=== PATIENT | female | born 1965 | race Caucasian/White ===

== ENCOUNTER 2025-05-11 12:28 | Outpatient (AMB) | payer OTHER, SELFPAY ==
--- OUTSIDE RECORDS SUMMARY | 2025-05-04 15:12 | XMS_ITS | Continuity of Care Document ---
Author Organization [facility] Address [address] [place] [address] [address] [place] [address] Phone Care Team Providers Care Welcome Desk Agent Name Role Phone Carlos ALCARAZ, EDWAR, David VAZQUEZ Unavailable U navailable Procedures Procedure Date 18-30 mmHg Thigh length gradient koby alexis stocking Advance Directives Directive Yes / No Effective Date File Name No Information Encounters Encounter Description Practice Location Reason(s) For Visit Diagnoses Date Provider Encounter Disposition [facility], [address] [place] [address] Dr [address]st [address], [id number], [place] tel:[phone] CVR - [facility] Chronic venous hypertension (idiopathic) with other complications of bilateral lower extremity Apr- 5 Carlos ALCARAZ RVT, RPVI Robert. [address] [place] [address], [id number] , [place]. tel:[phone] [place] [facility], [address] [place] [address] Dr [address], [id number], [place] tel:[phone] CVR - [facility] Chronic venous hypertension (idiopathic) with other complications of bilateral lower extremity Apr- 5 Carlos ALCARAZ RVT, RPVI Robert. [address] [place] [address], [id number] , [place]. tel:[phone] [place] [facility], [address] [place] [address] Dr [address], [id number], [place] tel:[phone] CVR - [facility] Chronic venous hypertension (idiopathic) with other complications of bilateral lower extremity Sep-1 5 Carlos ALCARAZ RVT, GEORGE Hernandez. [address] [place] [address], [facility] [place] [id number] , [place]. [phone] [facility], [address] [place] [address] Dr [address] [facility] [address], [id number], tel:[phone] CVR - [facility] Chronic venous hypertension (idiopathic) with other complications of bilateral lower extremityCram p and spasm Sep-1 5 Carlos ALCARAZ RVT, GEORGE Hernandez. [address] [place] [address], [place], [id number] , [place]. [phone] [facility], [address] [place] [address] Dr [address] [facility] [address], [id number], [place] tel:[phone] CVR - [facility] Chronic venous hypertension (idiopathic) with other complications of left lower extremity Sep-1 5 Carlos ALCARAZ RVT, GEORGE Hernandez. [address] [place] [address], [facility] [place], [id number] , [place]. [phone] Family History Family Member Type Diagnosis Age At Onset No Information Payers Payer name Insurance type Identifiers Authorization(s) Com [employer] Member ID: Name: Coverage Status Eligibility Check on: [id number] nship to Subscriber: spousePayer Address: [address] [address], [place], [address], [facility] Phone: [phone] Social History Type Description Quantity Date Captured Comments Sex Female Smoking Status No Information Current Gender Female (finding) Chief Complaint And Reason For Visit No Information Plan Of Treatment Date Type Action Status Goal Diet education completed Referral Ordered: Weight management: Referral to physician timeframe: 3 Months (related to Body mass index (BMI) 27.0-27.9, adult) ordered Appointment Luciana Soto BOOKED Appointment Luciana Soto BOOKED History Of Present Illness Encounter Date Complaint History Of Prese nt Illness No Information Functional Status Date Description Comments No Information Instructions Date Instruction Additional Infor benny Patient education booklet given Related to Chronic venous hypertension (idiopathic) with other complications of bilateral lower extremity Pre and post instruc tions reviewed and provided Related to Chronic venous hypertension (idiopathic) with other complications of bilateral lower extremity Diet education Related to Body mass index (BMI) 27.0-27.9, adult Giving Encouragement to exercise Related to Body mass index (BMI) 27.0-27.9, adult Lifestyle education Related to B sisi mass index (BMI) 27.0-27.9, adult Assessments Type Assessment Date No Information
--- OUTSIDE RECORDS SUMMARY | 2025-05-09 13:34 | XMS_ITS | Encounter Summary ---
Author Organization [facility] Address [address] [place] [address] Care Team Providers Care Concrete Pointer Name Role Phone Alejandro Townsend Primary Care Provider [phone] Reason for Referral * Imaging (Emergency) - Authorized Specialty Diagnoses / Procedures Referred By Yaz christianson Referred To Contact Radiology Diagnoses Thyroid nodule Procedures US Head Neck Soft Tissue Tejal Snider PA [address] [place] [address] Phone: tel: fax: [facility] Referral ID Status Reason Start Date Expiration Date V isits Requested Visits Authorized [id number] Authorized 05/08/2025 05/08/2026 1 1 Reason for Visit * Imaging (Emergency) - Authorized Specialty Diagnoses / Procedures Referred By Yaz christianson Referred To Contact Radiology Diagnoses Thyroid nodule Procedures US Head Neck Soft Tissue Tejal Snider PA [address] [place] [address] Phone: tel: fax: [facility] Referral ID Status Reason Start Date Expiration Date V isits Requested Visits Authorized [id number] Authorized 05/08/2025 05/08/2026 1 1 Encounter Details Date Type Department Care Team (Latest Contact Info) Description 05/09/2025 1:34 PM EST - 05/09/2025 11:59 PM EST Hospital Encounter [facility] Ultrasound [address] [place] [address] Thyroid nodule Discharge Disposition: Home or Self Care Social History Tobacco Use Types Packs/Day Years Used Date Smoking Tobacco: Former Cigarettes 0.3 Q uit: 02/19/2018 Smokeless Tobacco: Never Alcohol Use Standard Drinks/Week Comments No 0 (1 standard drink = 0.6 oz pur e alcohol) Interpersonal Safety Answer Date Record ed Physical Abuse Unrecognized value 01/09/2025 Verbal Abuse Unrecognized value 01/09/2025 Comments No Sex and Gender Information Value Date Recorded Sex Assigned at Female 12/30/2024 1:26 PM EDT Legal Sex Female 1:33 AM EST Gender Identity Female 12/30/2024 1:26 PM EDT Sexual Orientation Straight 12/30/2024 1: 26 PM EDT documented as of this encounter Medications at Time of Discharge acetaminophen (TYLENOL) 500 mg tablet Take 2 tablets (1,000 mg total) by mouth. 05/04/2022 acetaminophen (TYLENOL) 500 mg tablet Take 2 tablets (1,000 mg total) by mouth every 8 (eight) hours. 42 tablet 01/10/2025 b complex vitamins capsule Take 1 capsule by mouth 1 (one) time each day. 07/11/2023 docusate sodium (COLACE) 100 mg capsule Take 1 capsule (100 mg total) by mouth 2 (two) times a day if needed for constipation. Stop if having diarrhea 30 capsule 01/10/2025 gabapentin (NEURONTIN) 100 mg capsuleIndicatio ns:History of DVT (deep vein thrombosis) 02/20/2025 tirzepatide (Mounjaro) 12.5 mg/0.5 mL injection Inject 0.5 mL (12.5 mg total) under the skin every 7 (seven) days. 2 mL 04/13/2025 05/13/2025 traMADoL (ULTRAM) 50 mg tabletIndication s:History of DVT (deep vein thrombosis) 03/09/2025 documented as of this encounter Discharge Disposition Disposition Code Departure Means Destination Home or Self Care documented in this encounter Plan of Treatment Upcoming Encounters Date Type Department Care Team (Late st Contact Info) Description 06/11/2025 8:00 AM EST Appointment [facility] CT Scan [address] [place] [phone] 06/22/2025 8:00 AM EST Office Visit Bariatric Surgery [facility] [address] [address] Tejal Snider PA [address] [place] [address] 09/10/2025 11:30 AM EDT Office Visit Bariatric Surgery [address] [address] Ezekiel Devries MD [address] [place] [address] Pending Results Name Type Priority Associated Diagnoses Date /Time US Head Neck Soft Tissue Imaging STAT Thyroid nodule 05/09/2025 1:55 PM EST Scheduled Orders Name Type Priority Associated Diagnoses Orde r Schedule US Head Neck Soft Tissue Imaging STAT Thyroid nodule Once for 1 Occurrences starting 05/09/2025 until 05/09/2025 documented as of this encounter Visit Diagnoses Diagnosis Thyroid nodule Nontoxic uninodular goiter documented in this encounter Care Teams Concrete Pointer Relationship Specialty Start Date End Date Alejandro Townsend PA [address] [place] [address] PCP - General Primary Care 12/30/24 documented as of this encounter
--- NOTE | 2025-05-11 12:30 | A.OFFVIS_ITS ---
Vital Signs 05/11/25 12:32 Height 5 ft 2 in Weight 150 lb BMI 27.4 BP 118/64 Blood Pressure Location Lt brachial Position Sitting Respiration 16 Pulse 74 Pulse Source Pulse Oximeter Pulse Oximetry (%) 99 Oxygen Delivery Method Room Air Intake Visit Reasons: leg pain [place] [employer] Required: No Allergies No Known Allergies Allergy (Verified 05/11/25 12:34) Medication List - Last Reconciled 05/11/25 by Caitlin Disla LPN cholecalciferol (vitamin D3) 50 mcg PO DAILY gabapentin 100 mg PO TID oxycodone 5 mg PO BID PRN tirzepatide (Mounjaro) 12.5 mg subcut QWEEK tramadol 50 mg PO TID PRN HPI HPI leg pain: Details: History of Present Illness The patient is a 60 year old female presenting with persistent left-sided thigh pain. The pain is located in her left thigh and started suddenly. She reports the pain is constant and describes it as stabbing in nature. Past medical history is notable for diabetes. She takes fluoxetine. She has had a prior MRI of the left thigh. Pain Description - Location: The pain is in the left thigh. - Quality: The pain is described as stabbing. - Onset: The pain started suddenly. - Timing: The pain is present all the time. - Exacerbating Factors: The pain worsens with palpation. Physical Exam - General: The patient was examined in the prone position. - Musculoskeletal: Palpation of the left thigh reveals a focal area of tenderness that reproduces her pain. Pain Management: - Analgesia: The patient is taking fluoxetine. - Immediate-post procedure, the patient reported she was not in pain. Procedure: Posterior femoral cutaneous nerve block, US guided - A diagnostic injection was performed on the left thigh. - The risks and benefits were discussed, including that the procedure would be quick but may cause some pain, and potential for numbness in the left foot afterward. - The patient was placed in the prone position. - The injection was administered to the PFCN with ropivacaine 0.25% 8 mL. - The patient tolerated the procedure well. Image saved. [facility] Medical History (Updated 05/12/25 @ 14:22 by Jose Luis Arnold MD) Chronic pain of left lower extremity Vitamin D deficiency Obesity Insomnia GERD (gastroesophageal reflux disease) Physical Exam Vital Signs: Last Vital Signs Pulse 74 05/11/25 12:32 Resp 16 05/11/25 12:32 BP 118/64 05/11/25 12:32 Pulse Ox 99 05/11/25 12:32 Oxygen Delivery Method Room Air 05/11/25 12:32 BMI result Body Mass Index 27.4 Assessment & Plan Assessment & Plan (1) Left thigh pain: Code(s): M79.652 - Pain in left thigh Category: Medical Plan Plan Patient was informed and verbally consented to the use of an ambient scribe for clinic note documentation during this visit. 1. Left Thigh Pain - The patient's pain is localized to the left thigh and is chronic and stabbing in nature. - A diagnostic and therapeutic injection was performed today in the area of maximal tenderness. - She was advised that she might experience some numbness in her left foot post- procedure. - The patient was instructed to call the office tomorrow to report on her symptoms. - If the injection does not provide relief, another injection or further testing may be considered. Discussion Notes I discussed the plan to proceed with a therapeutic injection into her left thigh for her chronic pain. I explained that the procedure would be quick but could cause some mild, brief pain. I also advised her of the possibility of some numbness in her left foot afterward and to take care when walking. She tolerated the procedure well. I instructed her to wait 10-20 minutes to assess for any immediate change in her usual pain and to call our office tomorrow to provide an update on how she is feeling. We discussed that if this intervention is not effective, we may need to consider another injection or further diagnostic testing. Patient Instructions - After the procedure, your left foot may feel a little numb. - Please be careful when you start walking. - Please call our office tomorrow to let us know how your pain is. - If this injection does not help your pain, we may need to do another test or procedure. Coding Level of Care Code New Pt Level 4 (83810) Diagnoses Left thigh pain M79.652
[2025-05-11 12:32] VITALS: BP 118/64; PULSE 74; RESP 16; O2SAT 99; BMI 27.4
--- OUTSIDE RECORDS SUMMARY | 2025-05-11 15:39 | XMS_ITS | Encounter Summary ---
Author Organization [facility] Address [address] [place] [address] Care Team Providers Care Service Station Helper Name Role Phone Alejandro Townsend Primary Care Provider [phone] Reason for Referral * Imaging (Routine) - Pending Review Specialty Diagnoses / Procedures Referred By Contac t Referred To Contact Radiology Diagnoses Adrenal nodule (CMS/HCC V24) Procedures CT Abdomen Pelvis wo and w Contrast Tejal Snider PA [address] [place] [address] Phone: tel: fax: [address] [address] Phone: tel: Referral ID Status Reason Start Date Expiration Date V isits Requested Visits Authorized [id number] Pending Review 05/08/2025 05/08/2026 1 1 * Imaging (Emergency) - Authorized Specialty Diagnoses / Procedures Referred By Contac t Referred To Contact Radiology Diagnoses Thyroid nodule Procedures US Head Neck Soft Tissue Tejal Snider PA [address] [place] [address] Phone: tel: fax: [facility] Referral ID Status Reason Start Date Expiration Date V isits Requested Visits Authorized [id number] Authorized 05/08/2025 05/08/2026 1 1 Encounter Details Date Type Department Care Team (Late st Contact Info) Description 05/08/2025 Telephone Bariatric Surgery - [address] [place] [address] Tejal Snider PA [address] [place] [address] Social History Tobacco Use Types Packs/Day Years [...] PM EDT documented as of this encounter Progress Notes * ANA LUISA Simpson - 05/08/2025 11:19 AM EST Patient sent a message to the office earlier in the week in regards to a letter that she received from [employer] [facility] stating that there was incidental findings on the CT scan that she had in December 2024 A scan results below At the time of the CT scan was performed she is being worked up for bariatric complication Incidental findings were discussed with the patient at the time results came back Images were also sent to her primary care for further workup regarding thyroid nodule and adrenal nodules Patient states that she has followed up with her primary care since that time and this has not beendiscussed She mentions that she vaguely remembers the conversation regarding these incidental findings however has been more concerned with leg pain and her workup for the source of this discomfort Reached out to radiology who recommend that she call our office to schedule further workup per the [employer] program suggestion Will order thyroid ultrasound and CT with adrenal protocol Called radiology to verify correct orders Patient also asked to follow up with PCP Narrative & Impression PROCEDURE: CT of the chest, abdomen, and pelvis with intravenous contrast. HISTORY: complicated surgical hx, RYGB, marginal ulcer at GJ, new pleural effusion on pre op testing. r/o marginal ulcer perforation. COMPARISON: CT abdomen and pelvis 09/13/2023. CT abdomen and pelvis 06/10/2022. TECHNIQUE: Contrast-enhanced CT of the chest, abdomen, and pelvis with coronal and sagittal reformats. IV contrast dose: 90 mL [id number]. Dose length product: 1221 mGy-cm. FINDINGS: Lungs/pleura: Aspirated debris in the trachea. Normal caliber airways. Scattered very small (less than 2 mm) pulmonary nodules. Some are calcified. No suspicious pulmonary nodule or mass. No pleural effusion or pneumothorax. Mediastinum/bonnie: There is a low-attenuation nodule in the left thyroid lobe which could be better assessed with ultrasound. 7 mildly prominent left internal mammary lymph node (series 4, image 45) mild diffuse circumferential mural thickening of the esophagus which could be secondary to esophagitis. No mass or adenopathy. Thoracic vasculature: Mild atherosclerotic calcifications of the great vessels. Aberrant right subclavian artery. Normal caliber pulmonary arteries. No central pulmonary embolism. Cardiac: Mild coronary artery calcification. Normal heart size. Chest wall: No mass or adenopathy. Liver: There are scattered very small low-attenuation lesions which are unchanged and are probably cysts but too small for definitive characterization. Portal veins are patent. Biliary: Cholecystectomy. Mild prominence of the common duct, likely due to a reservoir effect. Pancreas: Normal. Spleen: Normal. Adrenal glands: 3 stable left adrenal nodules dating back to May 2022. The most superior measures 3.1 cm and is stable. This is fatty in attenuation consistent with a myolipoma. A 2.4 cm lesion arising slightly more inferiorly is also unchanged. This is low in attenuation but does not region ofinterest criteria for a fat-containing adenoma. The smallest and most inferiorly positioned nodule measures 1 cm and is of similar attenuation to the 2nd lesion. It is also unchanged. 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 Normal appearance of the ureters. Retroperitoneum: No mass or adenopathy. Abdominal vasculature: Normal. Bowel/mesentery: Postsurgical changes of a gastric bypass. No extraluminal gas collection. No obstruction or adenopathy. No mass or ascites. Abdominal wall: Normal. Pelvic nodes: No adenopathy. Pelvic organs: Normal. Bones: Degenerative changes of the spine. Mild degenerative changes of the hips. Degenerative changes of the sacroiliac joints with prominent reactive sclerosis. IMPRESSION: 1. Annika-en-Y gastric bypass. No evidence of a perforation. 2. Aspirated debris in the trachea. 3. 3 stable left adrenal nodules. 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 The 2 smaller nodulesare probably adenomas, but do not meet region of interest criteria on this (or previous) contrast-enhanced CT. They are stable dating back to May 2022. Definitive characterization of these nodules could be performed with adrenal protocol CT or MRI. 4. Mural thickening of the esophagus suggestive of esophagitis. 5. Nonspecific mildly enlarged left internal mammary lymph node. -------- FINAL REPORT -------- Dictated By: Eric Lees Dictated Date: 01/01/2025 09:23 ET Assigned Physician: Eric Lees Reviewed and Electronically Signed By: Eric Lees Signed Date: 01/01/2025 09:42 ET Workstation ID: [id number] Transcribed By: Self Edit Transcribed Date: 01/01/2025 09:23 ET documented in this encounter Plan of Treatment Upcoming Encounters Date Type Department Care Team (Late st Contact Info) Description 06/11/2025 8:00 AM EST Appointment [facility] CT Scan [address] [place] [phone] 06/22/2025 8:00 AM EST Office Visit Bariatric Surgery [facility] [address] [phone] Tejal Snider PA [address] [place] [phone] 09/10/2025 11:30 AM EDT Office Visit [address] [phone] Ezekiel Devries MD [address] [place] [address] Pending Results Name Type Priority Associated Diagnoses Date /Time US Head Neck Soft Tissue Imaging STAT Thyroid nodule 05/09/2025 1:55 PM EST Scheduled Orders Name Type Priority Associated Diagnoses Orde r Schedule US Head Neck Soft Tissue Imaging STAT Thyroid nodule Expected: 05/08/2025, Expires: 05/08/2026 CT Abdomen Pelvis wo and w Contrast Imaging Routine Adrenal nodule (CMS/HCC V24) Expected: 05/08/2025, Expires: 05/08/2026 documented as of this encounter Visit Diagnoses Diagnosis Thyroid nodule- Primary Nontoxic uninodular goiter Adrenal nodule (CMS/HCC V24) Benign neoplasm of adrenal gland documented in this encounter Care Teams Service Station Helper Relationship Specialty Start Date End Date Alejandro Townsend PA [address] [place] [address] PCP - General Primary Care 12/30/24 documented as of this encounter
--- OUTSIDE RECORDS SUMMARY | 2025-05-11 15:39 | XMS_ITS | Clinical Summary ---
Author Organization [facility] [address] [facility] Building Address [address] [place] [address] Phone Care Team Providers Care Blanching Machine Operator Name Role Phone Alejandro Townsend Primary Care Provider [phone] Allergies No known active allergies Medications b complex vitamins capsule Take 1 capsule by mouth 1 (one) time each day. 4 Active acetaminophen (TYLENOL) 500 mg tablet Take 2 tablets (1,000 mg total) by mouth. 2 Active acetaminophen (TYLENOL) 500 mg tablet Take 2 tablets (1,000 mg total) by mouth every 8 (eight) hours. 42 tablet 5 Active docusate sodium (COLACE) 100 mg capsule Take 1 capsule (100 mg total) by mouth 2 (two) times a day if needed for constipation. Stop if having diarrhea 30 capsule 5 Active apixaban (ELIQUIS) 5 mg tabletIndications :Blood clot associated with vein wall inflammation Take 2 tablets (10 mg total) by mouth 2 (two) times a day. Take 2 tablets by mouth twice daily for one week. Then take one tablet by mouth twice daily. 120 each 5 Active traMADoL (ULTRAM) 50 mg tabletIndications :History of DVT (deep vein thrombosis) 5 Active gabapentin (NEURONTIN) 100 mg capsuleIndication s:History of DVT (deep vein thrombosis) 5 Active tirzepatide (Mounjaro) 12.5 mg/0.5 mL injection Inject 0.5 mL (12.5 mg total) under the skin every 7 (seven) days. 2 mL 5 05/13/20 25 Active ergocalciferol (VITAMIN D-2) 1,250 mcg (50,000 unit) capsuleIndication s:Vitamin D deficiency Take 1 capsule (50,000 Units total) by mouth 1 (one) time per week for 12 doses. 12 each 5 05/07/20 25 tirzepatide (Mounjaro) 10 mg/0.5 mL injection Inject 0.5 mL (10 mg total) under the skin every 7 (seven) days. 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) 12/10/2024 01/10/2025 Encounters Date Type Department Care Team Description 05/09/2025 1:34 PM EST - 05/09/2025 11:59 PM EST Hospital Encounter [facility] Ultrasound [address] [place] [phone] Thyroid nodule Discharge Disposition: Home or Self Care 05/08/2025 Telephone Bariatric Surgery [facility] [address] [phone] Tejal Snider PA 04/08/2025 2:00 PM EST Office Visit Bariatric Surgery [facility] [address] [phone] Ezekiel Devries MD Intestinal malabsorption following gastrectomy (Primary Dx); Over weight 03/12/2025 8:30 AM EDT Office Visit [facility] Hematology Oncology [address] [place] [phone] Keenan Harris MD History of DVT (deep vein thrombosis) (Primary Dx) 02/18/2025 Results Follow-Up Bariatric Surgery [facility] 175 [facility] [address] [place] [address] Ezekiel Devries MD 02/17/2025 8:15 AM EDT Office Visit Bariatric Surgery - [place] 175 [facility] [address] [place] [address] Ezekiel Devries MD Blood clot associated with vein wall inflammation (Primary Dx); Postoperative intestinal malabsorption from Last 3 Months Surgical History Surgery Date Site/Laterality Comments OTHER SURGICAL HISTORY PROCEDURE: [place] LIG/TRNSXJ FLP TUBE ABDL/VAG APPR UNI/BI LAPAROSCOPIC GASTRIC BANDING 05/25 PROCEDURE: LAP ADJUSTABLE GASTRIC BAND; COMMENT: Dominic; APPENDECTOMY 04/29/08 PROCEDURE: HISTORICAL APPENDECTOMY OTHER SURGICAL HISTORY 05/06/2018 PROCEDURE: ---- OTHER ----; COMMENT: lap band removed CHOLECYSTECTOMY PROCEDURE: HISTORICAL CHOLECYSTECTOMY BARIATRIC SURGERY 12/06/2018 PROCEDURE: [place] LAPS GSTRC RSTRICTIV PX LONGITUDINAL GASTRECTOMY; COMMENT: lap sleeve gastrectomy Medical History Medical History Date Comments Unspecified constipation 09/21/2005 DX:Unsp ecified constipation Class 3 severe obesity due t o excess calories with body mass index (BMI) of 40.0 to 44.9 in adult ([facility] V24, [facility] V28) 11/19/2018 DX:Class 3 severe obesity du e to excess calories with body mass index (BMI) of 40.0 to 44.9 in adult ([facility]) GERD (gastroesophageal reflux disease) DVT of leg (deep venous thro mbosis) (CMS/HCC V24, CMS/[facility] V28) right GERD (gastroesophageal reflux disease) Insomnia Family History Medical History Relation Name Comments No Known Problems Daughter Heart attack Father Hypertension Father Other: bone cancer Maternal Grandmother d ied Thyroid disease Mother hyper-hypo Breast cancer Sister x2, in right b reast x1 and left breast x1 Other: refractory seizures Son Relation Name Status Comments Daughter Alive Father Alive Maternal Grandmother Mother Sister Alive Son Alive Social History Tobacco Use Types Packs/Day Years Used Date Smoking Tobacco: Former Cigarettes 0.3 Q uit: 02/19/2018 Smokeless Tobacco: Never Tobacco Cessation:Counseling Given: Not Answered Alcohol Use Standard Drinks/Week Comments No 0 [...] Orientation Straight 12/30/2024 1: 26 PM EDT Last Filed Vital Signs Vital Sign Reading Time Taken Comments Blood Pressure 113/73 04/08/2025 2:09 PM EST Pulse 71 04/08/2025 2:09 PM EST Temperature 36.6 C (97.8 F) 04/08/2025 2:09 PM EST Respiratory Rate 16 01/10/2025 7:54 AM EDT Oxygen Saturation 100% 03/12/2025 8:37 AM EDT Inhaled Oxygen Concentration - - Weight 70.3 kg (155 lb) 04/08/2025 2:09 PM EST Height 157.5 cm (5' 2 ) 04/08/2025 2:09 PM EST Body Mass Index 28.35 04/08/2025 2:09 PM EST Plan of Treatment Upcoming Encounters Date Type Department Care Team (Late st Contact Info) Description 06/11/2025 8:00 AM EST Appointment [facility] CT Scan [address] [place] [phone] 06/22/2025 8:00 AM EST Office Visit Bariatric Surgery [facility] [address] [phone] Tejal Snider PA [address] [place] [phone] 09/10/2025 11:30 AM EDT Office Visit Bariatric Surgery [facility] [address] [phone] Ezekiel Devries MD [facility] [place] [phone] Health Maintenance Due Date Last Done Comments Breast Cancer Screening 1965 Drug Screen 1965 Naloxone Order 1965 Opioid Substance Agreement 1966 Pain Assessment 1966 Hepatitis B Vaccines (1 of 3 - 19+ 3-dose series) 1985 Cervical Cancer Screening: Pap Smear 1987 Pneumococcal Vaccine: 50+ Years (1 of 1 - PCV) 2016 RSV Immunization Adult Patients (1 - Risk 50-74 years 1-dose series) 2016 Zoster Vaccines (1 of 2) 2016 Cholesterol Screening (Lipid Panel) 2022 HIV Screening 2022 Hepatitis C Screening 2022 Social Influencers of Health Screening 2022 Depression Screening 05/21/2024 COVID-19 Vaccine ( season) 2025 05/23/2021, 02/28/2021, 08/09/2020, Additional history exists Influenza Vaccine (#1) 2025 02/23/2010 DTaP,Tdap,and Td Vaccines (3 - Td or Tdap) 09/15/2031 09/14/2021, 01/14/2009 Colorectal Cancer Screening: Colonoscopy 10/01/2034 10/01/2024 HIB Vaccines Aged Out No longer eligi ble based on patient's age to complete this topic HPV Vaccines Aged Out No longer eligi ble based on patient's age to complete this topic Hepatitis A Vaccines Aged Out No long er eligible based on patient's age to complete this topic IPV Vaccines Aged Out No longer eligi ble based on patient's age to complete this topic MMR Vaccines Aged Out No longer eligi ble based on patient's age to complete this topic Meningococcal ACWY Vaccine Aged Out N o longer eligible based on patient's age to complete this topic Meningococcal B Vaccine Aged Out No l onger eligible based on patient's age to complete this topic RSV Immunization Patients Under 20 months Aged Out No longer eligible based on patient's age to complete this topic Varicella Vaccines Aged Out No longer eligible based on patient's age to complete this topic Procedures Procedure Name Priority Date/Time Associated Diagnosis Comments ALBUMIN Routine 02/17/2025 9:02 AM EDT Postoperative intestinal malabsorption CALCIUM Routine 02/17/2025 9:02 AM EDT Postoperative intestinal malabsorption COPPER, SERUM Routine 02/17/2025 9:02 AM EDT Postoperative intestinal malabsorption FOLATE Routine 02/17/2025 9:02 AM EDT Postoperative intestinal malabsorption IRON AND TIBC Routine 02/17/2025 9:02 AM EDT Postoperative intestinal malabsorption PARATHYROID HORMONE INTACT Routine 02/17/2025 9:02 AM EDT Postoperative intestinal malabsorption VITAMIN A Routine 02/17/2025 9:02 AM EDT Postoperative intestinal malabsorption VITAMIN B1 Routine 02/17/2025 9:02 AM EDT Postoperative intestinal malabsorption VITAMIN B12 Routine 02/17/2025 9:02 AM EDT Postoperative intestinal malabsorption VITAMIN B6 Routine 02/17/2025 9:02 AM EDT Postoperative intestinal malabsorption ZINC Routine 02/17/2025 9:02 AM EDT Postoperative intestinal malabsorption VITAMIN D 25 HYDROXY Routine 02/17/2025 9:02 AM EDT Postoperative intestinal malabsorption COLONOSCOPY Routine 10/01/2024 9:50 AM EDT Colon cancer screening from Last 3 Months or Most Recently Relevant to Health Maintenance Results * (ABNORMAL) Iron and TIBC (02/17/2025 9:02 AM EDT) Iron 65 40 - 150 mcg/dL LAB CHEMISTRY METHOD 02/17/2025 11:[address] [facility] TIBC 475(H) 250 - 450 mcg/dL LAB CHEMISTRY METHOD 02/17/2025 11:[address] [facility] Iron Saturation 14(L) 15 - 50 % LAB CHEMISTRY METHOD 02/17/2025 11:[address] [facility] Blood Venous blood specimen / Unknown Venipuncture / Unknown 02/17/2025 9:02 AM EDT 02/17/2025 9:02 AM EDT us Ezekiel Devries MD LAB BLOOD ORDERABLES Final R esult [facility] [address] [place] [address], [place] [phone] * Copper, serum (02/17/2025 9:02 AM EDT) Copper 1446 810 - 1990 ug/L 02/19/2025 12:21 PM EDT [facility] Comment: Copper values may be elevated to twice the normal levels in . Elevated results may be due to sample collected in a non-certified trace element-free tube. This test was developed and the performance characteristics determined by [facility]. It has not been cleared or approved by the FDA. The laboratory is regulated under CLIA as qualified to perform high-complexity testing. This test is used for patient testing purposes. It should not be regarded as investigational or for research. Test performed at [facility], [address] , [place] [address] Lilian Chadwick MD, PhD - Micromatic Hone Operator Blood Venous blood specimen / Unknown Venipuncture / Unknown 02/17/2025 9:02 AM EDT 02/17/2025 9:02 AM EDT us Ezekiel Devries MD LAB BLOOD ORDERABLES Final R esult [facility] [address] [place] [address] * Zinc (02/17/2025 9:02 AM EDT) Zinc 61 60 - 130 ug/dL 02/19/2025 11:37 AM EDT [facility] Comment: Elevated results may be due to sample collected in a non-certified trace element-free tube. This test was developed and the performance characteristics determined by [facility]. It has not been cleared or approved by the FDA. The laboratory is regulated under CLIA as qualified to perform high-complexity testing. This test is used for patient testing purposes. It should not be regarded as investigational or for research. Test performed at [facility], [address], [place] [address] Lilian Chadwick MD, PhD - Micromatic Hone Operator Blood Venous blood specimen / Unknown Venipuncture / Unknown 02/17/2025 9:02 AM EDT 02/17/2025 9:02 AM EDT Ezekiel Devries MD LAB BLOOD ORDERABLES Final R esult [facility] [address] [place] [address] * Vitamin A (02/17/2025 9:02 AM EDT) Vitamin A 57 38 - 106 ug/dL 02/20/2025 7:04 AM EDT [facility] Comment: This test was developed and the performance characteristics determined by [facility]. It has not been cleared or approved by the FDA. The laboratory is regulated under CLIA as qualified to perform high-complexity testing. This test is used for patient testing purposes. It should not be regarded as investigational or for research. Test performed at [facility], [address] , [place] [address] Lilian Chadwick MD, PhD - Micromatic Hone Operator Blood Venous blood specimen / Unknown Venipuncture / Unknown 02/17/2025 9:02 AM EDT 02/17/2025 9:02 AM EDT us Ezekiel Devries MD LAB BLOOD ORDERABLES Final R esult [facility] [address] [place] [address] * (ABNORMAL) Vitamin D 25 hydroxy (02/17/2025 9:02 AM EDT) Vit D, 25-Hydroxy 20.5(L) 30.0 - 80.0 ng/mL LAB CHEMISTRY METHOD 02/17/2025 1:[address] [facility] Blood Venous blood specimen / Unknown Venipuncture / Unknown 02/17/2025 9:02 AM EDT 02/17/2025 9:02 AM EDT us Ezekiel Devires MD LAB BLOOD ORDERABLES Final R esult Performing Organization Address City/[facility]/ZIP Co de Phone Number [facility] [address] [place] [address], [place] [phone] * Vitamin B1 (02/17/2025 9:02 AM EDT) Pathologist [facility] Vitamin B1 Whole Blood 51 38 - 122 ug/L 02/21/2025 7:35 AM EDT [facility] Comment: This test was developed and the performance characteristics determined by [facility]. It has not been cleared or approved by the FDA. The laboratory is regulated under CLIA as qualified to perform high-complexity testing. This test is used for patient testing purposes. It should not be regarded as investigational or for research. Test performed at [facility], [address], [place] [address] Lilian Chadwick MD, PhD - Micromatic Hone Operator Blood Venous blood specimen / Unknown Venipuncture / Unknown 02/17/2025 9:02 AM EDT 02/17/2025 9:02 AM EDT us Ezekiel Devries MD LAB BLOOD ORDERABLES Final R esult [facility] [address] [place] [address] * Vitamin B6 (02/17/2025 9:02 AM EDT) Vitamin B6 (Pyridoxine) Level 5 5 - 50 ug/L 02/20/2025 1:17 PM EDT [facility] Comment: This test was developed and the performance characteristics determined by [facility]. It has not been cleared or approved by the FDA. The laboratory is regulated under CLIA as qualified to perform high-complexity testing. This test is used for patient testing purposes. It should not be regarded as investigational or for research. Test performed at [facility], [address] , [place] [address] Lilian Chadwick MD, PhD - Micromatic Hone Operator Blood Venous blood specimen / Unknown Venipuncture / Unknown 02/17/2025 9:02 AM EDT 02/17/2025 9:02 AM EDT us Ezekiel Devries MD LAB BLOOD ORDERABLES Final R esult [facility] [address] [place] [address] * Parathyroid hormone intact (02/17/2025 9:02 AM EDT) Pathologist [facility] PTH 62.9 18.5 - 88.0 pcg/mL LAB CHEMISTRY METHOD 02/17/2025 1:[address] [facility] Blood Venous blood specimen / Unknown Venipuncture / Unknown 02/17/2025 9:02 AM EDT 02/17/2025 9:02 AM EDT us Ezekiel Devries MD LAB BLOOD ORDERABLES Final R esult [facility] [address] [place] [address], [place] [phone] * Folate (02/17/2025 9:02 AM EDT) Folate 7.7 2.8 - 17.0 ng/ml LAB CHEMISTRY METHOD 02/17/2025 11:[address] [facility] Blood Venous blood specimen / Unknown Venipuncture / Unknown 02/17/2025 9:02 AM EDT 02/17/2025 9:02 AM EDT us Ezekiel Devries MD LAB BLOOD ORDERABLES Final R esult [facility] [address] [place] [address], [place] [phone] * Vitamin B12 (02/17/2025 9:02 AM EDT) Pathologist [facility] Vitamin B-12 307 250 - 900 pcg/mL LAB CHEMISTRY METHOD 02/17/2025 11:[address] [facility] Blood Venous blood specimen / Unknown Venipuncture / Unknown 02/17/2025 9:02 AM EDT 02/17/2025 9:02 AM EDT us Ezekiel Devries MD LAB BLOOD ORDERABLES Final R esult [facility] [address] [place] [address], [place] [phone] * Calcium (02/17/2025 9:02 AM EDT) Calcium 9.3 8.5 - 10.5 mg/dL LAB CHEMISTRY METHOD 02/17/2025 10:[address] [facility] Blood Venous blood specimen / Unknown Venipuncture / Unknown 02/17/2025 9:02 AM EDT 02/17/2025 9:02 AM EDT us Ezekiel Devries MD LAB BLOOD ORDERABLES Final R esult Performing Organization Address City/[facility]/ZIP Co de Phone Number [facility] [address] [place] [address], * Albumin (02/17/2025 9:02 AM EDT) Albumin 3.7 3.2 - 5.0 g/dL LAB CHEMISTRY METHOD 02/17/2025 10:[address] [facility] Blood Venous blood specimen / Unknown Venipuncture / Unknown 02/17/2025 9:02 AM EDT 02/17/2025 9:02 AM EDT Ezekiel Devries MD LAB BLOOD ORDERABLES [facility] Performing Organization Address [facility]/ZIP Co de Phone Number [facility] [address] [place] [address], * COLONOSCOPY Anesthesia - [facility]; [facility] ENDOSCOPY (10/01/2024 9:50 AM EDT) Anatomical Region Laterality Modality Other 10/01/2024 9:27 AM EDT Impressions 10/01/2024 9:50 AM EDT - Non-bleeding internal hemorrhoids. - The examination was otherwise normal on direct and retroflexion views. - No specimens collected. Recommendation: - Perform an upper GI endoscopy today. - Repeat colonoscopy in 10 years for surveillance. Narrative 10/01/2024 9:50 AM EDT [facility] GI Patient Name: Luciana Soto Procedure Date: 10/01/2024 9:27 AM Date of : 1965 Age: 59 Room: ROOM 14 Gender: Female Note Status: Finalized Attending MD: William Love MD, Procedure Date No Time: 10/01/2024 Procedure: Colonoscopy Indications: Screening for colorectal malignant neoplasm Providers: William Love MD Referring MD: William Love MD Medicines: Monitored Anesthesia Care Complications: No immediate complications. Estimated Blood Loss: Estimated blood loss: none. Procedure: Pre-Anesthesia Assessment: - ASA Grade Assessment: II - A patient with mild systemic disease. - After reviewing the risks and benefits, the patient was deemed in satisfactory condition to undergo the procedure. After I obtained informed consent, the scope was passed under direct vision. Throughout the procedure, the patient's blood pressure, pulse, and oxygen saturations were monitored continuously.The Colonoscope was introduced through the anus and advanced to the cecum, identified by appendiceal orifice and ileocecal valve. The colonoscopy was performed without difficulty. The patient tolerated the procedure well. The quality of the bowel preparation was good. Findings: Non-bleeding internal hemorrhoids were found during retroflexion. The hemorrhoids were small. The exam was otherwise without abnormality on direct and retroflexion views. Procedure Code(s): --- Professional --- G0121, Colorectal cancer screening; colonoscopy on individual not meeting criteria for high risk Diagnosis Code(s): --- Professional --- Z12.11, Encounter for screening for malignant neoplasm of colon CPT copyright 2020 [employer]. All rights reserved. The codes documented in this report are preliminary and upon outpatient coder review may be revised to meet current compliance requirements. William Love MD 10/01/2024 9:50:42 AM This report has been signed electronically.William Love MD Number of Addenda: 0 Note Initiated On: 10/01/2024 9:27 AM Scope In: Scope Out: Endoscopy Department at [facility] - [address] [place] [phone] Procedure Note William Love MD - 10/01/2024 [facility] GI Patient Name: Luciana Soto Procedure Date: 10/01/2024 9:27 AM Date of : 1965 Age: 59 Room: ROOM 14 Gender: Female Note Status: Finalized Attending MD: William Love MD, Procedure Date No Time: 10/01/2024 Procedure: Colonoscopy Indications: Screening for colorectal malignant neoplasm Providers: William Love MD Referring MD: William Love MD Medicines: Monitored Anesthesia Care Complications: No immediate complications. Estimated Blood Loss: Estimated blood loss: none. Procedure: Pre-Anesthesia Assessment: - ASA Grade Assessment: II - A patient with mild systemic disease. - After reviewing the risks and benefits, thepatient was deemed in satisfactory condition to undergo the procedure. After I obtained informed consent, the scope was passed under direct vision. Throughout theprocedure, the patient's blood pressure, pulse, and oxygen saturations were monitored continuously.The Colonoscope was introduced through the anus and advanced to the cecum, identified by appendiceal orifice and ileocecal valve. The colonoscopy was performed without difficulty. The patient tolerated the procedure well. The quality of the bowel preparation was good. Findings: Non-bleeding internal hemorrhoids were found during retroflexion. The hemorrhoids were small. The exam was otherwise without abnormality ondirect and retroflexion views. Procedure Code(s): --- Professional --- G0121, Colorectal cancer screening; colonoscopy on individual not meeting criteria for high risk Diagnosis Code(s): --- Professional --- Z12.11, Encounter for screening for malignantneoplasm of colon CPT copyright 2020 [employer]. All rights reserved. The codes documented in this report are preliminary and upon outpatient coder reviewmay be revised to meet current compliance requirements. William Love MD 10/01/2024 9:50:42 AM This report has been signed electronically.William Love MD Number of Addenda: 0 Note Initiated On: 10/01/2024 9:27 AM Scope In: Scope Out: Endoscopy Department at [facility] - [address] [place] [phone] IMPRESSION: - Non-bleeding internal hemorrhoids. - The examination was otherwise normal on directand retroflexion views. - No specimens collected. Recommendation: - Perform an upper GI endoscopy today. - Repeat colonoscopy in 10 years forsurveillance. William Love MD GI~PROCEDURE ORDERABLES Final Result from Last 3 Months or Most Recently Relevant to Health Maintenance Insurance [facility] [place] [id number] [employer] Advance Directives * Full Code - Default (Latest Code Status on File) Date Activated Date Inactivated Comments 01/09/2025 6:02 AM 01/10/2025 1:37 PM This is orde r is used when code status has not been discussed with the patient, or code status is otherwise unknown/unconfirmed To update the patient's code status, place a code status order. Do not modify or discontinue any currently active code status orders. Care Teams Blanching Machine Operator Relationship Specialty Start Date End Date Alejandro Townsend PA [address] [place] [address] PCP - General Primary Care 12/30/24
== END 2025-05-11 13:20 | disposition home or self-care (01) ==
LOC: HO.PMC 12:28
PROVIDERS: PCP Physician Assistant Medical; Visit Provider Internal Medicine
DX: M79.652 Pain in left thigh (principal)
CPT/HCPCS: 99204

== ENCOUNTER → 2025-05-11 12:28 | Outpatient (BNVA) | payer OTHER, SELFPAY | PROVIDERS: PCP Physician Assistant Medical; Visit Provider Internal Medicine | DX: M79.652 Pain in left thigh (principal) | CPT/HCPCS: 96372 ==